=== PATIENT | male | born 1990 | race Two or more races ===

== ENCOUNTER 2017-06-08 20:48 | Emergency (ER) | payer BC, OTHER ==
[~2017-06-08] VITALS: Ht 167.6 cm; Wt 59.0 kg
[~2017-06-08 20:48] MED LIST: KEFLEX500 MG ORAL
[2017-06-08] MEDS ORDERED: NKM (21:08)
[2017-06-08 21:15] VITALS: BP 123/72
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
[2017-06-08 22:00] VITALS: BP 123/72
[2017-06-08] MEDS ORDERED: Tetanus/Diptheria/Pertussis Vaccine 0.5ml Syr IM ONE (22:00)
== END 2017-06-08 22:00 | disposition home or self-care (01) ==
LOC: EMR 21:15
DX: S01.81XA Laceration without foreign body of other part of head, initial encounter (principal); V43.52XA Car driver injured in collision with other type car in traffic accident, initial encounter; Y93.9 Activity, unspecified; Y92.410 Unspecified street and highway as the place of occurrence of the external cause; Z23 Encounter for immunization
CPT/HCPCS: 90471; 90715; 99284

== ENCOUNTER 2017-06-17 15:38 | Emergency (ER) | payer BC ==
[~2017-06-17] VITALS: Ht 167.6 cm; Wt 59.0 kg
[~2017-06-17 15:38] MED LIST changes: +NKM
--- NOTE | 2017-06-17 15:54 | Emergency Room Report ---
History of Present Illness General Chief Complaint: Wound Recheck/Suture Removal Source: Patient Present Illness HPI 27 YO male presents to the ED c/o 3 sutures on the left outer lip that need to be removed s/p wound closure 10 days ago. Denies bleeding, discharge, tenderness , erythema. Patient states he is up-to-date with vaccinations.Denies CP, Palpitations, LOC, AMS, dizziness, Changes in Vision, Sensation, paresthesias, or a sudden severe headache. Allergies: Coded Allergies: No Known Allergies (Unverified , 06/08/17) Patient History Past Medical History: see triage record Past Surgical History: none Pertinent Family History: none Immunizations: UTD Reviewed Nursing Documentation: PMH: Agreed, PSxH: Agreed Nursing Documentation-PMH Past Medical History: No Stated History Hx Hypertension: No Hx Diabetes: No Review of Systems All Other Systems: negative except mentioned in HPI Physical Exam Vital Signs Date Time Temp Pulse Resp B/P (MAP) Pulse Ox O2 Delivery O2 Flow Rate FiO2 06/17/17 15:46 98.8 84 18 126/65 98 Room Air Sp02 EP Interpretation: reviewed, normal General Appearance: no apparent distress, alert, GCS 15, non-toxic Head: normocephalic, atraumatic Eyes: bilateral eye normal inspection, bilateral eye PERRL ENT: hearing grossly normal, normal voice Neck: full range of motion Respiratory: lungs clear, normal breath sounds, speaking full sentences Cardiovascular #1: regular rate, rhythm Rectal: deferred Musculoskeletal: back normal, gait/station normal, normal range of motion, non- tender Neurologic: alert, oriented x3, responsive, motor strength/tone normal, sensory intact, speech normal Psychiatric: judgement/insight normal, memory normal, mood/affect normal Skin: normal color, no rash, warm/dry, well hydrated, wd healing/no infection noted - left lower lip [address] no evidence of infection. Medical Decision Making PA Attestation Dr. Jorgensen is my supervising Physician whom patient management has been discussed with. Diagnostic Impression: Primary Impression: Encounter for removal of sutures ER Course Pt. presents to the ED c/o 3 sutures on the left outer lip that need to be removed s/p wound closure 10 days ago. Ddx considered but are not limited to laceration, tendon injury, cellulitis, dehiscence. Vital signs: are WNL, pt. is afebrile H&PE are most consistent with: healed laceration of the lower left lip. ORDERS: none required at this time, the diagnosis is clinical ED INTERVENTIONS: - 3 Sutures removed. DISCHARGE: At this time pt. is stable for d/c to home. Will provide printed patient care instructions, and any necessary prescriptions. Care plan and follow up instructions have been discussed with the patient prior to discharge. Last Vital Signs Date Time Temp Pulse Resp B/P (MAP) Pulse Ox O2 Delivery O2 Flow Rate FiO2 06/17/17 15:46 98.8 84 18 126/65 98 Room Air Disposition: HOME, SELF-CARE Condition: Stable Scripts Bacitracin/Polymyxin B Sulfate (BACITRACIN-POLYMYXIN OINTMENT) 28.35 Gm Oint...g. 1 APPLIC TP BID, #28.3 GM Prov: Alla Mcdonough 06/17/17 Patient Instructions: Suture Removal, Care After Additional Instructions: Take medications as directed. Follow up with a Primary Care Provider in 3-5 days, even if your symptoms have resolved. --Please review list of primary care clinics, if you do not already have a primary care provider Return sooner to ED if new symptoms occur, or current symptoms become worse. - Please note that this Emergency Department Report was dictated using [employer] measurer technology software, occasionally this can lead to erroneous entry secondary to interpretation by the dictation equipment. Alla Mcdonough Jun 17, 2017 15:54
[2017-06-17] MEDS ORDERED: BACITRACIN-P28.35 GM TP (16:01)
[2017-06-17 16:15] VITALS: BP 126/65
== END 2017-06-17 16:15 | disposition home or self-care (01) ==
LOC: EMR 16:05
DX: S01.501D Unspecified open wound of lip, subsequent encounter (principal); Z48.02 Encounter for removal of sutures; X58.XXXD Exposure to other specified factors, subsequent encounter
CPT/HCPCS: 99283